=== PATIENT | female | born 1995 | race Caucasian/White ===

== ENCOUNTER 2018-02-24 20:40 | Inpatient (IN) | payer OTHER ==
[~2018-02-24] VITALS: Ht 152.4 cm; Wt 63.0 kg
[2018-02-24] MEDS ORDERED: PRENATAL TABLE1 EAC4 PO (21:49)
== END 2018-02-27 12:36 | disposition home or self-care (01) | DRG 775 ==
LOC: LDR 20:40 → OB/GYN 02-25 16:56
PROC: 4A1HXCZ Monitoring of Products of Conception, Cardiac Rate, External Approach (ICD-10-PCS; 2018-02-24)
PROC: 0KQM0ZZ Repair Perineum Muscle, Open Approach (ICD-10-PCS; principal; 2018-02-25)
PROC: 10E0XZZ Delivery of Products of Conception, External Approach (ICD-10-PCS; 2018-02-25)
DX: O70.1 Second degree perineal laceration during delivery (principal); Z37.0 Single live birth; Z3A.39 39 weeks gestation of pregnancy

== ENCOUNTER 2024-11-24 00:53 | Outpatient (CLI) | payer OTHER ==
[2024-11-23 23:18] VITALS: BP 90/56
[~2024-11-24] VITALS: Ht 152.4 cm; Wt 59.0 kg
[~2024-11-24 00:53] MED LIST: PRENATAL TABLE1 EAC4 PO
[2024-11-24] MEDS ORDERED: RINGERS SOLUTION,LACTATED 1,000 ML IV SCH (01:15)
[2024-11-24 01:38] LABS: HEMATOCRIT 30.6 % (36.0-45.00); HEMOGLOBIN 10.2 g/dL (12.0-15.00); MEAN CELL VOLUME 86.7 fL (80.00-100.00); MEAN CORPUSCULAR HEMOGLOBIN 28.9 pg (27.00-32.0); MEAN CORPUSCULAR HGB CONC 33.4 g/dl (32.0-36.0); PLATELET COUNT 300 K/uL (150-450); RED BLOOD COUNT 3.53 M/uL (4.00-6.00); RED CELL DISTRIBUTION WIDTH 12.7 % (11.5-14.5)
[2024-11-24 01:41] LABS: URINE APPEARANCE Cloudy; URINE BILIRRUBIN Negative (NEGATIVE); URINE BLOOD Negative; URINE COLOR Yellow; URINE GLUCOSE Negative (NEGATIVE); URINE KETONE Negative (NEGATIVE); URINE LEUKOCYTE Small; URINE NITRATE Negative; URINE PROTEIN Negative (NEGATIVE); URINE UROBILINOGEN 0.2 E.U./dl
[2024-11-24 01:45] LABS: URINE BACTERIA 1018.3 uL (0.0-1933); URINE EPITHELIAL CELLS 31.1 uL (0.0-38.8); URINE RBC 7.9 uL (0.0-20.8); URINE WBC 62.5 uL (0.0-23.2)
[2024-11-24 02:39] LABS: URINE CAST 1.03 uL (0.0-1.40); URINE CRYSTALS MANY /HPF
[2024-11-24 03:19] VITALS: BP 92/58
[2024-11-24] MEDS ORDERED: CEFAZOLIN SODIUM 1,000 MG VIAL ONE (03:31)
[2024-11-24] MEDS ORDERED: CEFAZOLIN SODIUM 1,000 MG VIAL IV SCH (04:09)
[2024-11-24 07:15] VITALS: BP 90/60
[2024-11-24 11:05] VITALS: BP 90/60
[2024-11-24 15:18] VITALS: BP 97/56
[2024-11-24 18:12] VITALS: BP 97/56
== END 2024-11-24 18:12 | disposition home or self-care (01) ==
LOC: OBS/DEL 00:53
PROVIDERS: ATTEND Obstetrics & Gynecology
DX: O26.893 Other specified pregnancy related conditions, third trimester (principal); Z3A.35 35 weeks gestation of pregnancy; R10.2 Pelvic and perineal pain

== ENCOUNTER 2024-12-29 22:00 | Inpatient (IN) | payer OTHER ==
[~2024-12-29] VITALS: Ht 152.4 cm; Wt 1.8 kg
[2024-12-29 20:56] VITALS: BP 93/56
[2024-12-29] MEDS ORDERED: RINGERS SOLUTION,LACTATED 1,000 ML IV SCH (22:15)
[2024-12-29 23:10] LABS: PH,URINE 7.5 (5.0-8.0); URINE APPEARANCE Clear; URINE BILIRRUBIN Negative (NEGATIVE); URINE BLOOD Large; URINE COLOR Yellow; URINE GLUCOSE Negative (NEGATIVE); URINE KETONE Negative (NEGATIVE); URINE LEUKOCYTE Moderate; URINE NITRATE Negative; URINE PROTEIN Negative (NEGATIVE); URINE UROBILINOGEN 0.2 E.U./dl
[2024-12-29 23:15] LABS: URINE BACTERIA 528.7 uL (0.0-1933); URINE EPITHELIAL CELLS 9.4 uL (0.0-38.8); URINE RBC 6.9 uL (0.0-20.8)
[2024-12-29 23:17] LABS: HEMOGLOBIN 10.4 g/dL (12.0-15.00); MEAN CORPUSCULAR HEMOGLOBIN 29.2 pg (27.00-32.0); MEAN CORPUSCULAR HGB CONC 33.5 g/dl (32.0-36.0); PLATELET COUNT 315 K/uL (150-450); RED BLOOD COUNT 3.56 M/uL (4.00-6.00); RED CELL DISTRIBUTION WIDTH 13.4 % (11.5-14.5)
[2024-12-29 23:25] LABS: URINE CAST 0.44 uL (0.0-1.40)
[2024-12-29 23:31] LABS: INR 0.95; PARTIAL THROMBOPLASTIN TIME 26.8 SECONDS (22.0-34.0); PROTHROMBIN TIME 10.4 SECONDS (9.0-11.5)
[2024-12-29 23:39] VITALS: BP 91/60
[2024-12-30] VITALS (7 sets, daily range): BP systolic 89–100; BP diastolic 50–62; O2SAT 98–99
[2024-12-30] MEDS ORDERED: NIFEDIPINE 10 MG CAPSULE PO ONE (00:45)
[2024-12-30] MEDS ORDERED: CEFAZOLIN SODIUM 1,000 MG VIAL IV SCH ×2 (00:45→20:00)
[2024-12-30] MEDS ORDERED: NIFEDIPINE 10 MG CAPSULE PO NR (08:45)
[2024-12-30] MEDS ORDERED: BETAMETHASONE ACETATE,SOD PHOS 30 MG/5 ML ML IM SCH (12:30)
[2024-12-30] MEDS ORDERED: BETAMETHASONE ACETATE,SOD PHOS 30 MG/5 ML ML ONE (13:49)
[2024-12-31 03:08] VITALS: BP 87/59
[2024-12-31 07:10] VITALS: BP 84/50
[2024-12-31] MEDS ORDERED: NIFEDIPINE 10 MG CAPSULE PO ONE (08:45)
[2024-12-31 12:17] VITALS: BP 77/47
[2024-12-31 15:23] VITALS: BP 95/61
[2024-12-31 19:46] VITALS: BP 94/58
[2024-12-31 23:21] VITALS: BP 96/60
[2024-12-31 23:38] LABS: HEMATOCRIT 25.4 % (36.0-45.00); HEMOGLOBIN 8.5 g/dL (12.0-15.00); MEAN CELL VOLUME 87.5 fL (80.00-100.00); MEAN CORPUSCULAR HEMOGLOBIN 29.3 pg (27.00-32.0); MEAN CORPUSCULAR HGB CONC 33.3 g/dl (32.0-36.0); PLATELET COUNT 277 K/uL (150-450); RED CELL DISTRIBUTION WIDTH 13.7 % (11.5-14.5)
[2025-01-01 03:35] VITALS: BP 96/55
[2025-01-01] MEDS ORDERED: SOD FERRIC GLUC COMPLX/SUCROSE 62.5 MG/5 ML AMPUL IV ONE (07:10)
[2025-01-01] MEDS ORDERED: SOD FERRIC GLUC COMPLX/SUCROSE 125 MG in 0.9 % SODIUM CHLORIDE 100 ML IV SCH (09:00)
[2025-01-01] MEDS ORDERED: PNV,CALCIUM 72/IRON/FOLIC ACID 1 TAB TABLET PO SCH (09:00)
[2025-01-01] MEDS ORDERED: CITRIC ACID/SODIUM CITRATE 30 ML BLIST.PACK PO ONE (09:30)
[2025-01-01] MEDS ORDERED: ACETAMINOPHEN 500 MG GEL..CAP PO ONE (09:30)
[2025-01-01 11:49] VITALS: BP 111/67
[2025-01-01] MEDS ORDERED: ERYTHROMYCIN BASE OPHT 1GM EACH TUBE OP ONE (13:27)
[2025-01-01] MEDS ORDERED: OXYTOCIN 10 UNITS/ML VIAL ONE (13:27)
[2025-01-01] MEDS ORDERED: KETOROLAC TROMETHAMINE 60 MG VIAL IM STA (15:01)
[2025-01-01] MEDS ORDERED: RINGERS SOLUTION,LACTATED 1,000 ML IV SCH (15:15)
[2025-01-01] MEDS ORDERED: PROMETHAZINE HCL 25 MG/ML AMPUL IM PRN (15:15)
[2025-01-01] MEDS ORDERED: OXYTOCIN 1,000 ML IV SCH (15:15)
[2025-01-01] MEDS ORDERED: CHLORHEXIDINE GLUCONATE 120 ML BOTTLE TOP ONE (15:15)
[2025-01-01] MEDS ORDERED: MEPERIDINE HCL/PF 50 MG/ML VIAL IM PRN (15:15)
[2025-01-01] MEDS ORDERED: KETOROLAC TROMETHAMINE 60 MG VIAL IM ONE ×2 (17:45→17:53)
[2025-01-01 18:29] VITALS: BP 110/62
[2025-01-01 20:17] LABS: MEAN CELL VOLUME 86.5 fL (80.00-100.00); MEAN CORPUSCULAR HGB CONC 34.5 g/dl (32.0-36.0); PLATELET COUNT 287 K/uL (150-450); RED BLOOD COUNT 2.37 M/uL (4.00-6.00); RED CELL DISTRIBUTION WIDTH 13.5 % (11.5-14.5)
[2025-01-01 20:19] LABS: HEMATOCRIT 20.5 % (36.0-45.00); MEAN CORPUSCULAR HEMOGLOBIN 29.9 pg (27.00-32.0)
[2025-01-01 20:20] LABS: HEMOGLOBIN 7.1 g/dL (12.0-15.00)
[2025-01-02] VITALS: BP 100/57
[2025-01-02 04:00] VITALS: BP 102/62
[2025-01-02 08:12] LABS: MEAN CELL VOLUME 87.9 fL (80.00-100.00); MEAN CORPUSCULAR HGB CONC 33.7 g/dl (32.0-36.0); PLATELET COUNT 308 K/uL (150-450); RED BLOOD COUNT 2.62 M/uL (4.00-6.00); RED CELL DISTRIBUTION WIDTH 13.7 % (11.5-14.5)
[2025-01-02 08:15] VITALS: BP 99/66
[2025-01-02 08:27] LABS: HEMATOCRIT 23.1 % (36.0-45.00); MEAN CORPUSCULAR HEMOGLOBIN 29.7 pg (27.00-32.0)
[2025-01-02 08:28] LABS: HEMOGLOBIN 7.8 g/dL (12.0-15.00)
[2025-01-02] MEDS ORDERED: OxyCODONE HCL/APAP UD (PERCOCET) PO PRN (09:00)
[2025-01-02 11:29] VITALS: BP 91/60
[2025-01-02 16:14] VITALS: BP 107/68
[2025-01-02] MEDS ORDERED: FERROUS SULFATE 325 MG TABLET.EC PO NR (16:15)
[2025-01-02 20:31] VITALS: BP 104/69
[2025-01-03] VITALS: BP 98/64
[2025-01-03 07:00] LABS: HEMATOCRIT 26.4 % (36.0-45.00); MEAN CELL VOLUME 87.8 fL (80.00-100.00); MEAN CORPUSCULAR HGB CONC 32.9 g/dl (32.0-36.0); PLATELET COUNT 340 K/uL (150-450); RED CELL DISTRIBUTION WIDTH 13.5 % (11.5-14.5)
[2025-01-03 07:18] LABS: HEMOGLOBIN 8.7 g/dL (12.0-15.00)
[2025-01-03 08:00] VITALS: BP 94/63
[2025-01-03] MEDS ORDERED: FERROUS SULFATE 325 MG TABLET.EC PO SCH (09:00)
[2025-01-03 16:01] VITALS: BP 91/62
[2025-01-03 23:27] VITALS: BP 99/65
[2025-01-04 08:00] VITALS: BP 94/66
== END 2025-01-04 11:07 | disposition home or self-care (01) | DRG 786 ==
LOC: OBS/DEL 22:00 → LDR 12-30 13:55 → OB/GYN 01-01 15:47
PROVIDERS: ADMIT Obstetrics & Gynecology; ATTEND Obstetrics & Gynecology
PROC: 4A1HXCZ Monitoring of Products of Conception, Cardiac Rate, External Approach (ICD-10-PCS; 2024-12-30)
PROC: BY4FZZZ Ultrasonography of Third Trimester, Single Fetus (ICD-10-PCS; 2024-12-30)
PROC: BU4CZZZ Ultrasonography of Uterus and Ovaries (ICD-10-PCS; 2024-12-30)
PROC: 10D00Z1 Extraction of Products of Conception, Low, Open Approach (ICD-10-PCS; principal; 2025-01-01 13:00)
DX: O45.8X3 Other premature separation of placenta, third trimester (principal); O60.14X0 Preterm labor third trimester with preterm delivery third trimester, not applicable or unspecified; O23.43 Unspecified infection of urinary tract in pregnancy, third trimester; O26.853 Spotting complicating pregnancy, third trimester; O26.843 Uterine size-date discrepancy, third trimester; O36.8130 Decreased fetal movements, third trimester, not applicable or unspecified; Z3A.32 32 weeks gestation of pregnancy; Z37.0 Single live birth